=== PATIENT | female | born 1945 | race Two or more races ===

== ENCOUNTER 2024-11-03 19:25 | Inpatient (IN) | payer MEDICAID ==
[~2024-11-03] VITALS: Ht 144.8 cm; Wt 59.0 kg
[2024-11-03] MEDS ORDERED: ONDANSETRON HCL/PF 4 MG/2 ML VIAL ONE (20:16)
[2024-11-03] MEDS ORDERED: MORPHINE SULFATE INJ 4 MG/ML DISP.SYRIN ONE (20:16)
[2024-11-03 20:25] LABS: BASOPHILS % (AUTO) 0.4 % (0.0-2.0); EOSINOPHILS % (AUTO) 0.1 % (0.0-6.0); HEMATOCRIT 36 % (33-45); LYMPHOCYTES # (AUTO) 0.5 K/uL (0.8-4.8); LYMPHOCYTES % (AUTO) 4.6 % (20.0-44.0); MEAN CORPUSCULAR HEMOGLOBIN 29 PG (26.0-33.0); MEAN CORPUSCULAR HGB CONC 33 g/dl (31.0-36.0); MEAN CORPUSCULAR VOLUME 87 fL (82-100); MONOCYTES # (AUTO) 0.6 K/uL (0.1-1.30); MONOCYTES % (AUTO) 6.6 % (2.0-12.0); NEUTROPHILS # (AUTO) 8.7 K/uL (1.8-8.9); NEUTROPHILS % (AUTO) 88.3 % (43.0-81.0); PLATELET COUNT (AUTO) 217 K/uL (150-450); RED BLOOD CELL COUNT(AUTO) 4.17 MIL/uL (4.0-5.2); RED CELL DISTRIBUTION WIDTH 13.8 % (11.5-15.0); WHITE BLOOD COUNT (AUTO) 9.9 K/uL (4.3-11.0)
[2024-11-03] MEDS: MORPHINE SULFATE INJ 2 MG/ML DISP.SYRIN IV ONE (20:28)
[2024-11-03] MEDS: ONDANSETRON HCL/PF 4 MG/2 ML VIAL IVP ONE (20:29)
[2024-11-03 20:39] LABS: INR 0.98 (0.91-1.10); PROTHROMBIN TIME 10.4 SECS (9.2-11.1)
[2024-11-03 20:45] LABS: CALCIUM, SERUM 9.4 mg/dL (8.5-10.1); CREATININE 0.8 mg/dL (0.6-1.3); POTASSIUM 3.6 mmol/L (3.5-5.1)
[2024-11-03] MEDS ORDERED: ONDANSETRON HCL/PF 4 MG/2 ML VIAL IVP PRN (23:30)
[2024-11-03] MEDS ORDERED: MAGNESIUM HYDROXIDE 30 ML UDC PO PRN (23:30)
[2024-11-03] MEDS ORDERED: ACETAMINOPHEN 325 MG TABLET PO PRN (23:30)
[2024-11-04 00:02] VITALS: O2SAT 98
[2024-11-04] MEDS: IV NS 0.9% 1,000 ML IV PRN (00:55)
[2024-11-04 08:06] LABS: BASOPHILS % (AUTO) 0.5 % (0.0-2.0); EOSINOPHILS % (AUTO) 0.2 % (0.0-6.0); HEMATOCRIT 34 % (33-45); HEMOGLOBIN 11.3 g/dL (11.5-14.8); LYMPHOCYTES % (AUTO) 14.7 % (20.0-44.0); MEAN CORPUSCULAR HEMOGLOBIN 29 PG (26.0-33.0); MEAN CORPUSCULAR HGB CONC 33 g/dl (31.0-36.0); MEAN CORPUSCULAR VOLUME 86 fL (82-100); MONOCYTES # (AUTO) 1.2 K/uL (0.1-1.30); MONOCYTES % (AUTO) 17.1 % (2.0-12.0); NEUTROPHILS # (AUTO) 4.6 K/uL (1.8-8.9); NEUTROPHILS % (AUTO) 67.5 % (43.0-81.0); PLATELET COUNT (AUTO) 201 K/uL (150-450); RED BLOOD CELL COUNT(AUTO) 3.94 MIL/uL (4.0-5.2); WHITE BLOOD COUNT (AUTO) 6.8 K/uL (4.3-11.0)
[2024-11-04 08:22] LABS: CALCIUM, SERUM 9.4 mg/dL (8.5-10.1); CREATININE 0.7 mg/dL (0.6-1.3); MAGNESIUM 2.3 mg/dL (1.8-2.4); PHOSPHORUS 3.6 mg/dL (2.5-4.9); POTASSIUM 3.4 mmol/L (3.5-5.1)
[2024-11-04] MEDS ORDERED: OLME1TAB88 PO (10:25)
[2024-11-04] MEDS ORDERED: ASPI-1420 PO (10:25)
[2024-11-04] MEDS ORDERED: ROSU10TA29 PO (10:25)
[2024-11-04] MEDS ORDERED: NIFE10CA2 PO (10:25)
[2024-11-04] MEDS: POTASSIUM CL. PREMIX PERIPHER. 50 ML IV SCH (10:34)
[2024-11-04 11:34] LABS: NEUTROPHILS % (MANUAL) 76 (42-76)
[2024-11-04 11:35] LABS: LYMPHOCYTES % (MANUAL) 10 % (16-48); MONOCYTES % (MANUAL) 10 % (0-11.0); PLATELET ESTIMATE ADEQUATE; REACTIVE LYMPHOCYTES 4 % (0-0)
[2024-11-04] MEDS ORDERED: MEPERIDINE HCL/PF 50 MG/ML DISP.SYRIN IV PRN (12:30)
[2024-11-04] MEDS ORDERED: KETOROLAC TROMETHAMINE INJ 30 MG/ML VIAL IM PRN (12:30)
[2024-11-04] MEDS ORDERED: ONDANSETRON HCL/PF 4 MG/2 ML VIAL IVP PRN (12:30)
[2024-11-04] MEDS ORDERED: MORPHINE SULFATE INJ 10 MG/ML DISP.SYRIN IV PRN (12:30)
[2024-11-04] MEDS ORDERED: KETOROLAC TROMETHAMINE INJ 30 MG/ML VIAL IV PRN (12:30)
[2024-11-04] MEDS ORDERED: BUPIVACAINE 0.5 % PF 150 MG/30 ML VIAL ONE (12:58)
[2024-11-04] MEDS ORDERED: FENTANYL PF 100MCG/2ML AMPUL ONE (13:05)
[2024-11-04] MEDS ORDERED: ROCURONIUM BROMIDE 50 MG/5 ML ONE (13:05)
[2024-11-04] MEDS ORDERED: CLINDAMYCIN IV RTU IN D5W 50 ML ONE (13:06)
[2024-11-04] MEDS ORDERED: TRANEXAMIC ACID 1,000 MG/10 ML VIAL ONE ×2 (13:46→13:47)
[2024-11-04] MEDS ORDERED: ANESTHESIA TRAY IN PYXIS 1 EA TRAY MC ONE (16:10)
[2024-11-04 16:30] VITALS: BP 154/70; TEMP 97.6
[2024-11-04] MEDS: HYDROCODONE/APAP 5/325MG TABLET PO PRN (17:55)
[2024-11-04 20:00] VITALS: BP_SYST 115; BP_SYST 148; BP_DIAS 61; BP_DIAS 64; TEMP 98.1; TEMP 98.5; O2SAT 94; O2SAT 96
[2024-11-04] MEDS: CEFAZOLIN 2 GM in IV D5W 100 ML IV SCH (21:03)
[2024-11-05] VITALS (7 sets, daily range): BP systolic 123–150; BP diastolic 53–73; TEMP 97.4–98.6; O2SAT 92–99
[2024-11-05 07:20] LABS: BASOPHILS % (AUTO) 0.1 % (0.0-2.0); HEMATOCRIT 30 % (33-45); LYMPHOCYTES # (AUTO) 1.8 K/uL (0.8-4.8); LYMPHOCYTES % (AUTO) 16.7 % (20.0-44.0); MEAN CORPUSCULAR HEMOGLOBIN 29 PG (26.0-33.0); MEAN CORPUSCULAR HGB CONC 33 g/dl (31.0-36.0); MEAN CORPUSCULAR VOLUME 87 fL (82-100); MONOCYTES # (AUTO) 1.3 K/uL (0.1-1.30); MONOCYTES % (AUTO) 11.3 % (2.0-12.0); NEUTROPHILS # (AUTO) 7.9 K/uL (1.8-8.9); NEUTROPHILS % (AUTO) 71.9 % (43.0-81.0); PLATELET COUNT (AUTO) 171 K/uL (150-450); RED BLOOD CELL COUNT(AUTO) 3.46 MIL/uL (4.0-5.2); WHITE BLOOD COUNT (AUTO) 11.1 K/uL (4.3-11.0)
[2024-11-05 07:42] LABS: ALBUMIN 2.8 g/dL (3.4-5.0); BILIRUBIN,TOTAL 0.2 mg/dL (0.2-1.0); CALCIUM, SERUM 8.7 mg/dL (8.5-10.1); CREATININE 0.7 mg/dL (0.6-1.3); MAGNESIUM 2.2 mg/dL (1.8-2.4); PHOSPHORUS 3.7 mg/dL (2.5-4.9)
[2024-11-05] MEDS: ENOXAPARIN SODIUM 40 MG/0.4 ML DISP.SYRIN SQ SCH (09:23)
[2024-11-05] MEDS: MORPHINE SULFATE INJ 2 MG/ML DISP.SYRIN IV PRN (10:26)
[2024-11-06 02:00] VITALS: BP 120/71; TEMP 98.6
[2024-11-06 07:30] VITALS: BP 139/66; TEMP 99; O2SAT 97
[2024-11-06 16:00] VITALS: BP 147/70; TEMP 99.7; O2SAT 94
[2024-11-06 20:00] VITALS: BP 121/65; TEMP 98.4; O2SAT 95
[2024-11-07 04:00] VITALS: BP 112/74; TEMP 98.4; O2SAT 95
[2024-11-07 08:00] VITALS: BP 132/60; TEMP 98.1; O2SAT 96
[2024-11-07 16:00] VITALS: BP 142/72; TEMP 98.4; O2SAT 97
[2024-11-07] MEDS ORDERED: NEO/BACI/POLY B/HC OINT (15GM) 15 GM TUBE TP PRN (17:00)
[2024-11-07 20:00] VITALS: BP 127/55; TEMP 98.4; O2SAT 96
[2024-11-08 06:41] LABS: BASOPHILS % (AUTO) 0.2 % (0.0-2.0); EOSINOPHILS # (AUTO) 0.4 K/uL (0.0-0.7); EOSINOPHILS % (AUTO) 6.2 % (0.0-6.0); HEMATOCRIT 30 % (33-45); HEMOGLOBIN 9.8 g/dL (11.5-14.8); LYMPHOCYTES # (AUTO) 1.7 K/uL (0.8-4.8); LYMPHOCYTES % (AUTO) 26.5 % (20.0-44.0); MEAN CORPUSCULAR HEMOGLOBIN 29 PG (26.0-33.0); MEAN CORPUSCULAR HGB CONC 33 g/dl (31.0-36.0); MEAN CORPUSCULAR VOLUME 86 fL (82-100); MONOCYTES # (AUTO) 0.7 K/uL (0.1-1.30); MONOCYTES % (AUTO) 10.7 % (2.0-12.0); NEUTROPHILS # (AUTO) 3.7 K/uL (1.8-8.9); NEUTROPHILS % (AUTO) 56.4 % (43.0-81.0); PLATELET COUNT (AUTO) 193 K/uL (150-450); RED BLOOD CELL COUNT(AUTO) 3.42 MIL/uL (4.0-5.2); RED CELL DISTRIBUTION WIDTH 13.7 % (11.5-15.0); WHITE BLOOD COUNT (AUTO) 6.5 K/uL (4.3-11.0)
[2024-11-08 06:58] LABS: ALBUMIN 2.2 g/dL (3.4-5.0); BILIRUBIN,TOTAL 0.4 mg/dL (0.2-1.0); CALCIUM, SERUM 8.4 mg/dL (8.5-10.1); CREATININE 0.5 mg/dL (0.6-1.3); MAGNESIUM 2.1 mg/dL (1.8-2.4); PHOSPHORUS 3.5 mg/dL (2.5-4.9); POTASSIUM 3.9 mmol/L (3.5-5.1); TOTAL PROTEIN, SERUM 5.4 g/dL (6.4-8.2)
[2024-11-08 07:30] VITALS: BP 135/68; TEMP 99; O2SAT 93
[2024-11-08 16:00] VITALS: BP 137/73; TEMP 98.4; O2SAT 97
[2024-11-08 20:00] VITALS: BP 151/62; TEMP 98.4; O2SAT 96
[2024-11-08] MEDS: ZOLPIDEM TARTRATE 5 MG TABLET PO PRN (21:31)
[2024-11-08] MEDS: HYDROCORTISONE OINT 1% 28.35 GM TUBE TP PRN (21:33)
[2024-11-09 04:00] VITALS: BP 146/69; TEMP 98.1; O2SAT 96
[2024-11-09 08:00] VITALS: BP 143/74; TEMP 98.4; O2SAT 96
[2024-11-09 16:00] VITALS: BP 148/73; TEMP 98.4; O2SAT 95
== END 2024-11-09 19:00 | DRG 308 ==
LOC: ER 19:27 → MED 23:17
PROVIDERS: ADMIT Nurse Practitioner Acute Care
PROC: 0QS706Z Reposition Left Upper Femur with Intramedullary Internal Fixation Device, Open Approach (ICD-10-PCS; principal; 2024-11-04)
DX: S72.142A Displaced intertrochanteric fracture of left femur, initial encounter for closed fracture (principal); D68.59 Other primary thrombophilia; W01.0XXA Fall on same level from slipping, tripping and stumbling without subsequent striking against object, initial encounter; Y92.000 Kitchen of unspecified non-institutional (private) residence as the place of occurrence of the external cause; I10 Essential (primary) hypertension; Z88.0 Allergy status to penicillin; M81.0 Age-related osteoporosis without current pathological fracture; Z79.82 Long term (current) use of aspirin; Z90.710 Acquired absence of both cervix and uterus; Z74.09 Other reduced mobility; Z79.899 Other long term (current) drug therapy
CPT/HCPCS: 36415; 70450-TC; 71045-TC; 72170-TC; 72192-TC; 73020; 73110; 73502; 73552; 73564-TC; 80048-TC; 80053-TC; 83735-TC; 84100-TC; 85025-TC; 85730-TC; 86850-TC; 93307-TC; 97110-TC; 97116-TC; 97530-TC; A4223; A6253; C1713; G0378; J0330; J0690; J1100; J1650; J1885; J2270; J2405; J2704; J3010; J3480; J3490; J7030; J7060